=== PATIENT | male | born 1970 | race American Indian/Alaskan Native ===

== ENCOUNTER 2022-07-07 08:47 | Emergency (ER) | payer SELFPAY ==
--- NOTE | 2022-07-07 12:58 | Emergency Department Report ---
ED Back Pain/Injury HPI - General Chief Complaint: Back Pain/Injury Stated Complaint: BACK PAIN/LEG PAIN LEFT SIDE Time Seen by Provider: 07/07/22 12:46 Source: patient Limitations: No Limitations - History of Present Illness Initial Comments: Patient is a 51-year-old gentleman who was mowing the grass 6 days ago and towards the end of this activity he started having pain in his left lumbar area radiating into his left lateral thigh. This pain has increased throughout the week. No recent trauma of any kind. Has never needed to seek medical attention for anything similar and denies any previous trauma or diagnostic studies of his lower lumbar area. He denies paresthesias of the lower extremities. No incontinence of bladder or bowel or weakness. No fever or abdominal pain. MD Complaint: back pain Improves With: none Worsens With: none Context: while lifting, turning/twisting, other (Cutting grass) Associated Symptoms: denies: confusion, weakness, chest pain, numbness, difficulty walking, cough, difficulty urinating, diaphoresis, incontinence, fever/chills, constipation, headaches, abdominal pain, loss of appetite, malaise, nausea/vomiting, rash, seizure, shortness of breath, syncope Treatments Prior to Arrival: other (None) - Related Data Previous Rx's Medication Instructions Recorded Last Taken Type Cyclobenzaprine [Flexeril 10 MG 10 mg PO HS PRN #20 tab 07/07/22 Unknown Rx TAB] Ibuprofen [Motrin 600 MG tab] 600 mg PO Q8H PRN #25 tablet 07/07/22 Unknown Rx Allergies Allergy/AdvReac Type Severity Reaction Status Date / Time No Known Allergies Allergy Unverified 07/07/22 08:49 ED Review of Systems ROS: Stated complaint: BACK PAIN/LEG PAIN LEFT SIDE Other details as noted in HPI Constitutional: denies: chills, fever Eyes: denies: eye pain, eye discharge, vision change ENT: denies: ear pain, throat pain Respiratory: denies: cough, shortness of breath, wheezing Cardiovascular: denies: chest pain, palpitations Endocrine: no symptoms reported Gastrointestinal: denies: abdominal pain, nausea, diarrhea Genitourinary: denies: urgency, dysuria Musculoskeletal: as per HPI Skin: denies: rash, lesions Neurological: denies: headache, weakness, paresthesias Psychiatric: denies: anxiety, depression Hematological/Lymphatic: denies: easy bleeding, easy bruising ED Past Medical Hx - Past Medical History Previous Medical History?: Yes Hx Diabetes: Yes - Surgical History Past Surgical History?: No - Medications Home Medications: Home Medications Medication Instructions Recorded Confirmed Last Taken Type Cyclobenzaprine [Flexeril 10 MG 10 mg PO HS PRN #20 tab 07/07/22 Unknown Rx TAB] Ibuprofen [Motrin 600 MG tab] 600 mg PO Q8H PRN #25 tablet 07/07/22 Unknown Rx ED Physical Exam - General Limitations: No Limitations General appearance: alert, in no apparent distress - Head Head exam: Present: atraumatic, normocephalic - Eye Eye exam: Present: normal appearance - ENT ENT exam: Present: mucous membranes moist - Neck Neck exam: Present: normal inspection - Respiratory Respiratory exam: Present: normal lung sounds bilaterally. Absent: respiratory distress - Cardiovascular Cardiovascular Exam: Present: regular rate, normal rhythm. Absent: systolic murmur, diastolic murmur, rubs, gallop - GI/Abdominal GI/Abdominal exam: Present: soft, normal bowel sounds - Rectal Rectal exam: Present: deferred - Extremities Exam Extremities exam: Present: normal inspection - Back Exam Back exam: Present: normal inspection, full ROM, tenderness (Left lumbar paraspinous muscles), muscle spasm, paraspinal tenderness. Absent: CVA tenderness (R), CVA tenderness (L), vertebral tenderness - Neurological Exam Neurological exam: Present: alert, oriented X3, CN II-XII intact, abnormal gait (Antalgic), reflexes normal. Absent: motor sensory deficit - Psychiatric Psychiatric exam: Present: normal affect, normal mood - Skin Skin exam: Present: warm, dry, intact, normal color. Absent: rash ED Course Vital Signs 07/07/22 08:50 Temperature 98.5 F Pulse Rate 58 L Respiratory 18 Rate Blood Pressure 154/90 O2 Sat by Pulse 99 Oximetry ED Medical Decision Making - Medical Decision Making Patient is a 51-year-old male who was mowing the lawn and during that activity started having pain in his left lumbar spine radiating to the lateral thigh. He does not have a primary care doctor so we will treat with anti-inflammatories muscle relaxers and have him follow-up with Dr. Mulligan on-call. Critical care attestation.: If time is entered above; I have spent that time in minutes in the direct care of this critically ill patient, excluding procedure time. ED Disposition Clinical Impression: Lumbar strain Disposition: HOME / SELF CARE / HOMELESS Is pt being admited?: No Condition: Stable Instructions: Lumbar Sprain Additional Instructions: Ice alternating with feet 15 minutes/h. Muscle relaxers. Anti-inflammatories. Primary care follow-up. ([facility]) Prescriptions: Cyclobenzaprine [Flexeril 10 MG TAB] 10 mg PO HS PRN #20 tab PRN Reason: Spasms Ibuprofen [Motrin 600 MG tab] 600 mg PO Q8H PRN #25 tablet PRN Reason: Pain Referrals: RUT REBOLLAR [Advanced Practice Nurse] - 3-5 Days Forms: Work/School Release Form(ED) Time of Disposition: 13:03
[2022-07-07 13:12] VITALS: BP 139/86
== END 2022-07-07 14:11 | disposition home or self-care (01) ==
LOC: ED 08:47
DX: S39.012A Strain of muscle, fascia and tendon of lower back, initial encounter (principal); E11.9 Type 2 diabetes mellitus without complications; Z98.890 Other specified postprocedural states; Z79.899 Other long term (current) drug therapy; X50.1XXA Overexertion from prolonged static or awkward postures, initial encounter; Y93.89 Activity, other specified; Y92.89 Other specified places as the place of occurrence of the external cause; Y99.8 Other external cause status
CPT/HCPCS: 99282